=== PATIENT | male | born 1965 | race African-American/Black ===

== ENCOUNTER 2021-04-23 04:00 | Inpatient (IN) | payer OTHER ==
[~2021-04-23] VITALS: Ht 170.2 cm; Wt 83.9 kg
--- NOTE | 2021-04-23 04:15 | NUR ---
xray at bedside
--- NOTE | 2021-04-23 04:15 | NUR ---
PT AAOX4, BIBSELF C/O R PINKY PAIN AND REDNESS "POSSIBLY INFECTED" X3 WEEKS. PT STATED HE HAD A LAC ON HIS R PINKY X3 WEEKS AGO, BECAME WORSE, WAS PLACED ON ANTIBIOTICS BY A MD. PT DID NOT COMPLETE ANTIBIOTICS DUE TO IT BEING STOLEN. PLACED IN BED 11. AWAITING ORDERS.
--- NOTE | 2021-04-23 04:15 | NUR ---
xray at bedside
[2021-04-23] MEDS ORDERED: VANCOMYCIN 1 GM in IV D5W 250 ML IV ONE (05:30)
--- NOTE | 2021-04-23 05:45 | NUR ---
called for ms bed
--- NOTE | 2021-04-23 05:47 | NUR ---
FRENCH DRAWER AT BEDSIDE FOR BLOOD WORK.
--- NOTE | 2021-04-23 05:47 | NUR ---
ANATOLIYID SWABBED, SENT TO LAB.
[2021-04-23 05:50] LABS: BASOPHILS # (AUTO) 0.1 /CMM (0.0-0.2); BASOPHILS % (AUTO) 1.8 % (0.0-2.0); EOSINOPHILS % (AUTO) 4.9 % (0.0-6.0); HEMATOCRIT 40 % (39-51); HEMOGLOBIN 13.5 g/dL (13.5-17.5); LYMPHOCYTES # (AUTO) 1.9 /CMM (0.8-4.8); LYMPHOCYTES % (AUTO) 33.8 % (20.0-44.0); MEAN CORPUSCULAR HGB CONC 33 g/dl (31.0-36.0); MEAN CORPUSCULAR VOLUME 94 fL (80-96); MONOCYTES # (AUTO) 0.4 /CMM (0.1-1.30); MONOCYTES % (AUTO) 7.1 % (2.0-12.0); NEUTROPHILS % (AUTO) 52.4 % (43.0-81.0); PLATELET COUNT (AUTO) 214 /CMM (150-450); RED BLOOD CELL COUNT(AUTO) 4.32 MIL/uL (4.5-6.0); WHITE BLOOD COUNT (AUTO) 5.7 K/uL (4.3-11.0)
[2021-04-23 06:00] LABS: CALCIUM, SERUM 8.3 mg/dL (8.5-10.1); POTASSIUM 3.6 mmol/L (3.5-5.1)
[2021-04-23] MEDS ORDERED: ONDANSETRON HCL/PF 4 MG/2 ML VIAL IVP PRN (06:00)
[2021-04-23] MEDS ORDERED: Z GUARD REMEDY 2 OZ OINT TP PRN (06:00)
[2021-04-23] MEDS ORDERED: MAGNESIUM HYDROXIDE 30 ML UDC PO PRN (06:00)
[2021-04-23] MEDS ORDERED: ZOLPIDEM TARTRATE 5 MG TABLET PO PRN (06:00)
[2021-04-23] MEDS ORDERED: MAG HYDROX/AL HYDROX/SIMETH 30 ML UDC PO PRN (06:00)
[2021-04-23] MEDS ORDERED: ACETAMINOPHEN 325 MG TABLET PO PRN (06:00)
[2021-04-23 06:07] LABS: BILIRUBIN,DIRECT 0.1 mg/dL (0.0-0.2); BILIRUBIN,TOTAL 0.2 mg/dL (0.2-1.0); TOTAL PROTEIN, SERUM 7.3 g/dL (6.4-8.2)
--- NOTE | 2021-04-23 08:07 | NUR ---
BED 314-2
--- NOTE | 2021-04-23 08:33 | NUR ---
report given to nurse Sarmiento
--- NOTE | 2021-04-23 09:00 | NUR ---
RN ADMITTING NOTES RECEIVED ADMISSION FROM ER. PATIENT MEDICALLY STABLE, A/O X4, ON ROOM AIR. VS WNL. WILL CONTINUE TO MONITOR.
[2021-04-23] MEDS: VANCOMYCIN 1 GM in IV D5W 250ml IV SCH ×2 (12:39→20:24)
[2021-04-23 16:12] VITALS: BP 121/78
--- NOTE | 2021-04-23 19:08 | NUR ---
MS RN CLOSING NOTES PATIENT RESTING IN BED, ALERT/ORIENTED X 4, PATIENT ABLE TO MAKE NEEDS KNOWN. PATIENT ON ROOM AIR; BREATHING EVEN AND UNLABORED; NO SOB PRESENT DURING THE DAY. NO COMPLAINS OF PAIN DURING SHIFT. L HAND #20G IV ACCESS PRESENT AND INTACT. ALL NEEDS ATTENDED THROUGHOUT THE DAY. SAFETY MEASURES IN PLACE, CALL LIGHT AND TABLE WITHIN REACH, BED LOCKED IN LOWEST POSITION, SIDE RAILS UP X 2. WILL ENDORSE TO JOB DEVELOPER FOR [employer]ULTS NURSE.
--- NOTE | 2021-04-23 19:25 | NUR ---
MS/RN OPENING NOTE RECEIVED PATIENT RESTING IN BED. AWAKE, ALERT AND ORIENTED X 4. ABLE TO MAKE NEEDS KNOWN. NO COMPLAINTS OF PAIN AT THIS TIME. CONTINUES ON ROOM AIR WITH NO S/SX OF RESPIRATORY DISTRESS NOTED. IV ACCESS TO LEFT HAND #20G INTACT, PATENT AND SALINE LOCKED. CONTINUES ON IV ABX FOR OSTEOMYELITIS. CALL LIGHT WITHIN REACH. ASPIRATION, FALL AND SAFETY PRECAUTIONS MAINTAINED. WILL CONTINUE TO MONITOR.
[2021-04-23 20:00] VITALS: BP 106/46
[2021-04-24] MEDS: VANCOMYCIN 1 GM in IV D5W 250ml IV SCH (06:25)
--- NOTE | 2021-04-24 06:40 | NUR ---
MS/RN CLOSING NOTE PATIENT CURRENTLY RESTING IN BED. AWAKE, ALERT AND ORIENTED X 4. ABLE TO MAKE NEEDS KNOWN. NO COMPLAINTS OF PAIN AT THIS TIME. CONTINUES ON ROOM AIR WITH NO S/SX OF RESPIRATORY DISTRESS NOTED. IV ACCESS TO LEFT HAND #20G INTACT, PATENT AND SALINE LOCKED. CONTINUES ON IV ABX FOR OSTEOMYELITIS. CALL LIGHT WITHIN REACH. ASPIRATION, FALL AND SAFETY PRECAUTIONS MAINTAINED. WILL ENDORSE PLAN OF CARE TO ONCOMING SHIFT.
[2021-04-24 06:43] LABS: BASOPHILS % (AUTO) 0.5 % (0.0-2.0); EOSINOPHILS % (AUTO) 7.2 % (0.0-6.0); HEMATOCRIT 44 % (39-51); HEMOGLOBIN 14.6 g/dL (13.5-17.5); LYMPHOCYTES # (AUTO) 1.9 /CMM (0.8-4.8); LYMPHOCYTES % (AUTO) 36.6 % (20.0-44.0); MEAN CORPUSCULAR HGB CONC 33 g/dl (31.0-36.0); MEAN CORPUSCULAR VOLUME 94 fL (80-96); MONOCYTES # (AUTO) 0.4 /CMM (0.1-1.30); MONOCYTES % (AUTO) 7.7 % (2.0-12.0); NEUTROPHILS # (AUTO) 2.5 /CMM (1.8-8.9); PLATELET COUNT (AUTO) 221 /CMM (150-450); RED BLOOD CELL COUNT(AUTO) 4.65 MIL/uL (4.5-6.0); WHITE BLOOD COUNT (AUTO) 5.3 K/uL (4.3-11.0)
--- NOTE | 2021-04-24 07:12 | NUR ---
MS/RN OPENING NOTE RECEIVED PATIENT RESTING IN BED. AWAKE, ALERT AND ORIENTED X 4. ABLE TO MAKE NEEDS KNOWN. NO COMPLAINTS OF PAIN AT THIS TIME. PATIENT IS BREATHING EVENLY AND NONLABORED ON ROOM AIR WITH NO S/SX OF RESPIRATORY DISTRESS NOTED. IV ACCESS TO LEFT HAND #20G INTACT, PATENT AND INTACT RUNNING VANCOMYCIN, CONTINUES ON IV ABX FOR OSTEOMYELITIS. SAFETY MEASURES ARE IN PLACE. CALL LIGHT WITHIN REACH. ASPIRATION, FALL AND SAFETY PRECAUTIONS MAINTAINED. WILL CONTINUE TO MONITOR.
[2021-04-24 07:40] LABS: CALCIUM, SERUM 8.5 mg/dL (8.5-10.1); PHOSPHORUS 2.8 mg/dL (2.5-4.9); POTASSIUM 4.1 mmol/L (3.5-5.1)
[2021-04-24 08:41] VITALS: BP 124/64
[2021-04-24] MEDS: VANCOMYCIN 1.25 GM in IV D5W 250 ML IV SCH ×2 (13:37→22:16)
[2021-04-24 16:19] VITALS: BP 120/72
--- NOTE | 2021-04-24 18:25 | NUR ---
MS/RN CLOSING NOTE PATIENT RESTING IN BED. AWAKE, ALERT AND ORIENTED X 4. ABLE TO MAKE NEEDS KNOWN. NO COMPLAINTS OF PAIN AT THIS TIME. PATIENT IS BREATHING EVENLY AND NONLABORED ON ROOM AIR WITH NO S/SX OF RESPIRATORY DISTRESS NOTED. IV ACCESS TO LEFT HAND #20G INTACT, PATENT AND INTACT. CONTINUES ON IV ABX FOR OSTEOMYELITIS. ALL MEDICATION GIVEN ORDERED. SAFETY MEASURES ARE IN PLACE. CALL LIGHT WITHIN REACH. ASPIRATION, FALL AND SAFETY PRECAUTIONS MAINTAINED. WILL ENDORSE TO ONCOMING SHIFT
[2021-04-24 20:00] VITALS: BP 119/77
--- NOTE | 2021-04-24 20:00 | NUR ---
MS RN OPENING NOTE Patient is A&Ox4. Calm and cooperative with plan of care. Reports pain to R pinky is tolerable, does not want pain medication. No ase from IV ABT use. No issues at this time.
[2021-04-25] MEDS: VANCOMYCIN 1.25 GM in IV D5W 250 ML IV SCH ×2 (05:25→13:21)
[2021-04-25 07:03] LABS: CALCIUM, SERUM 8.6 mg/dL (8.5-10.1); POTASSIUM 3.9 mmol/L (3.5-5.1)
--- NOTE | 2021-04-25 07:26 | NUR ---
A&Ox4. VSS. Denies pain. No signs of distress. Tolerating IV ABX well. Will continue to monitor.
[2021-04-25 08:00] VITALS: BP 111/73
--- NOTE | 2021-04-25 08:37 | NUR ---
RN NOTE PATIENT COMPLAINED OF WET FEELING AT IV SITE. UPON FURTHER INSPECTION IV SITE WAS DISLODGED. IV REMOVED. NEW IV PUT IN ON L FOREARM # 22GAUGE. PATIENT TOLERATED WELL.
--- NOTE | 2021-04-25 09:11 | NUR ---
WOUND CARE CONSULT: PT PRESENTS WITH VERY SWOLLEN RT 5TH FINGER WITH DRY ESCHAR, PRESENT ON ADMISSION. SURGICAL CONSULT CALLED TO DR KOHANZADEH. JARAMILLO IN AGREEMENT WITH PLAN OF CARE.
--- NOTE | 2021-04-25 13:00 | NUR ---
RN NOTE VANCO TROUGH WAS 21. PHARMACY SAID OKAY TO GIVE 1400 DOSE, THEN THEY WOULD ADJUST NEXT DOSE. WILL CONTINUE TO MONITOR
--- NOTE | 2021-04-25 13:55 | NUR ---
Legal Mediator consult: janitorial services supervisor consult requested for substance use. Patient is a 56-year-old, male. SW met with patient at his bedside in the med-surg unit. Patient was alert and oriented x4. Patient presented calm and appeared well-groomed. Per chart, patient was brought in by self on 04/23/21 for a right finger laceration. Patient stated that he is currently living with roommates at [address] [place] [address]; [phone]. Patient stated that he is currently receiving food stamps and [employer] as a source of income. SW asked patient about his history of substance use and patient reported substance use from a week ago which includes alcohol (daily), cannabis (daily) and cocaine use (2x/week). SW assessed patients history of mental illness and patient reported that he has been feeling depressed. Patient denied current suicidal or homicidal ideation. SW asked the patient if he has utilized outpatient mental health services in the past and patient denied history. SW offered the patient outpatient mental health resources and patient accepted the resources stating that he will follow up independently. SW offered patient substance use resources and patient accepted the resources stating, I dont need them right now, but I will keep them. SW discussed discharge plans with the patient and patient stated that he will return to his prior living arrangement at home with roommates. Patient stated that he can take public transportation. PLAN: Patient plans to return to prior living arrangement at home with roommates. No further SS intervention at this time, however SW will remain available as needed. Counseling--[facility] [address], [place] [address] (Specializes in in-depth psychotherapy for emotional distress: anxiety, depression, interpersonal conflicts, life transitions, childhood abuse) [facility] [address] [place] [address] (Assist with solving problem marital difficulties, separation & divorce, aging parents, & grief, chronic & terminal illness) [facility] [address] [place] [address] (Deal with loss & grief, anxiety, marital difficulties) [facility] [address], [address] [place] [address] (Provide in-home mental services to people who are incapable of leaving their homes) [facility] [address] [place] [address] Partial Hospitalization Program and Outpatient at [facility] [address] [place], [place] [phone] [facility] [address] [place] [address] PSYCHIATRIC OUTPATIENT SERVICES [facility] Partial Hospitalization and Intensive Outpatient Program (Managed Care and [place] Only)[address] [facility] [facility] [phone] [facility] Partial Hospitalization and Outpatient [id number] [facility] [address] [place], [place] [phone] [facility] Partial Hospitalization and Outpatient [id number] [place], [place] [phone] [facility] [place] [id number] [facility] [place], [place] [phone] [facility] Partial Hospitalization and Outpatient [id number] [place], [phone] Substance use resources provided included: [facility] Substance Abuse Self-Helpline ([facility]) ; [facility] [address] [facility] [place] [address] ; [facility] [address] [facility] [address] ; [facility] [address] [facility] [address] ; [facility] [address] [facility] [address] ; [address] [phone] ; [facility]; [facility]; [facility] [place]; Alcoholics Anonymous -[facility]
[2021-04-25 16:00] VITALS: BP_SYST 132; BP_SYST 136; BP_DIAS 66; BP_DIAS 71
--- NOTE | 2021-04-25 18:37 | NUR ---
MS RN CLOSING NOTE PATIENT RESTING IN BED. AWAKE, ALERT AND ORIENTED X 4. ABLE TO MAKE NEEDS KNOWN. NO COMPLAINTS OF PAIN AT THIS TIME. PATIENT IS BREATHING EVENLY AND NONLABORED ON ROOM AIR WITH NO S/SX OF RESPIRATORY DISTRESS NOTED. IV ACCESS TO LEFT FOREARM #22G INTACT, PATENT AND INTACT. CONTINUES ON IV ABX FOR OSTEOMYELITIS. ALL MEDICATION GIVEN ORDERED. SAFETY MEASURES ARE IN PLACE. CALL LIGHT WITHIN REACH. ASPIRATION, FALL AND SAFETY PRECAUTIONS MAINTAINED. WILL ENDORSE TO ONCOMING SHIFT
[2021-04-25 20:00] VITALS: BP 112/67
--- NOTE | 2021-04-25 20:00 | NUR ---
MS RN OPENING NOTES: RECEIVED PATIENT AWAKE IN BED, BED IN LOW POSITION, CALL LIGHTS WITHIN REACH, NO COMPLAIN OF PAIN AND DISCOMFORT AT THIS TIME, NO SOB NOTED, PATIENT IS AMBULATORY WITH BRP WITH IV LINE AT L HAND #20 SL. ALL NEEDS MET, WILL CONTINUE TO MONITOR.
[2021-04-25] MEDS ORDERED: VANCOMYCIN 1 GM in IV D5W 250 ML IV SCH (22:00)
--- NOTE | 2021-04-26 06:30 | NUR ---
VANCOMYCIN 1 GRAM NOT GIVEN AWAITING FOR VANCO TROUGH RESULT ENDORSE TO INCOMING SHIFT.
--- NOTE | 2021-04-26 07:04 | NUR ---
MS RN CLOSING NOTES: PATIENT AWAKE IN BED, A/OX4 NO COMPLAIN OF PAIN AND DISCOMFORT AT THIS TIME, BED IN LOW POSITION, CALL LIGHTS WITHIN REACH, PATIENT WITH IV LINE AT LFA #22SL INFUSING WELL, ALL NEEDS MET, KEPT CLEAN AND DRY, WILL CONTINUE TO MONITOR.
[2021-04-26 07:10] LABS: CALCIUM, SERUM 8.7 mg/dL (8.5-10.1); POTASSIUM 3.9 mmol/L (3.5-5.1)
--- NOTE | 2021-04-26 07:25 | NUR ---
RN MS NOTES RECEIVED REPORT FROM GLASS PULVERIZER EQUIPMENT OPERATOR RN. UPON ROUNDS, NOTED THAT PT IS NOT IN HIS ROOM, BATHROOM CHECK DONE, PT NOT THERE, UNIT SEARCH DONE, PT NOT SEEN, PER REPORT FROM REVENUE COLLECTOR, PT WAS SEEN WALKING OUT OF THE BUILDING AND THEY ARE NOT ABLE TO STOP THE PT FROM LEAVING BECAUSE PT STATED THAT HIS GIRLFRIEND IS WAITING FOR HIM, CHARGE NURSE, NURSING BILINGUAL SALES CONSULTANT AND MD MADE AWARE OF THE INCIDENT.
[2021-04-26 08:00] VITALS: BP 140/82
== END 2021-04-26 07:25 | disposition left against medical advice (07) | DRG 344 ==
LOC: ER 04:08 → MED 08:10
PROVIDERS: ATTEND Nurse Practitioner Acute Care
DX: M86.141 Other acute osteomyelitis, right hand (principal); L03.011 Cellulitis of right finger; Z20.822 Contact with and (suspected) exposure to COVID-19; Z59.0 Homelessness; Z72.0 Tobacco use
CPT/HCPCS: 36415; 73120-TC; 80048-TC; 80061-TC; 80076-TC; 80202-TC; 83605-TC; 83735-TC; 84100-TC; 85025-TC; 85730-TC; 87040-TC; 87081-TC; C9803; G0378; J3370; J7050; J7060

== ENCOUNTER 2021-06-18 23:03 | Emergency (ER) | payer OTHER ==
[~2021-06-18] VITALS: Ht 170.2 cm; Wt 83.9 kg
[2021-06-18 23:43] VITALS: BP 132/77
--- NOTE | 2021-06-19 00:17 | NUR ---
PT ELOPED FROM EMERGENCY DEPARTMENT.
== END 2021-06-19 00:17 | disposition home or self-care (01) ==
LOC: ER 23:04
DX: M86.9 Osteomyelitis, unspecified (principal)